=== PATIENT | female | born 1960 | race Caucasian/White ===

== ENCOUNTER 2019-12-23 09:53 | Inpatient (IN) | payer BC, SELFPAY ==
[~2019-12-23] VITALS: Ht 160 cm; Wt 62.3 kg
[2019-12-23 10:05] VITALS: Ht 160 cm; Wt 62.3 kg
--- NOTE | 2019-12-23 10:07 | NUR ---
MD SALOMON AT BEDSIDE
--- NOTE | 2019-12-23 10:09 | NUR ---
PT PRESENTS TO ED 1 FROM [facility]. PT WAS AT [facility] FOR WOUND CARE MANAGEMENT OF NEW OSTOMY BAG. PT PRESENTS HERE WITH INCREASED AGITATION, FEVER, TACHYCARDIA, AND LOW BP. UPON ARRIVAL PT IS GCS15. PT RESPONDS PURPOSEFULY TO QUESTIONS HOWVERR UNABLE TO ANSWER QUESTIONS FOR ORIENTATION.PT HOT TO THE TOUCH. PT GRUNTING FROM PAIN. PT O2 SAT LOW ON ROOM AIR AND PLACED ON 6L NC WITH IMPROVEMENT. PT STATES SHE HAS NEW ONSET HERPES ON HER COCCYX. PER EMS SHE IS HYPOTENSIVE AT BASELINE DUE TO "ALL THE PAIN MEDS SHE TAKES". PT HAS OSTOMY NOTED TO RLQ WITH CLEAN AND NORMAL DRAINAGE AND BAG IN PLACE. POPPED PUSTULES NOTED TO PT BUTTOCKS AREA. PT CONNECTED TO FULL CM AND PULSE OX MONITORS. LAB AT BEDSIDE FOR BLOOD DRAW.
--- NOTE | 2019-12-23 10:49 | NUR ---
LEVO INFUSING AT 2MCG/MIN IN R UPPER PICC LINE WITH NS BOLUS WELL PER MD SALOMON
--- NOTE | 2019-12-23 10:53 | NUR ---
COOLING MEASURES IN PLACE AT THIS TIME XRAY AT BEDSIDE
[2019-12-23 10:56] LABS: PLATELET COUNT 225 x10^3mcL (130-400)
--- NOTE | 2019-12-23 10:58 | NUR ---
MD SALOMON STATES TITRATE LEVO TO BP WITH MAP OF 65. PT CURRENTLY HAS 2L BOLUS INFUSING AND X RAY AT BEDSIDE. WILL ADJUST LEVO ACCORDINGLY
--- NOTE | 2019-12-23 11:01 | NUR ---
LEVO TITRATED UP TO 04.MCG/JR
[2019-12-23 11:06] LABS: CALCIUM 9.3 mg/dL (8.5-10.1); CARBON DIOXIDE 20.5 mmol/L (21-32); CHLORIDE SERUM 104 mmol/L (98-107); GFR1 > 60 mL/min; GLUCOSE SERUM 101 mg/dL (74-106); POTASSIUM SERUM 3.4 mmol/L (3.5-5.1); SODIUM SERUM 138 mmol/L (136-145)
[2019-12-23 11:11] LABS: ALT/SGPT 51 U/L (14-59); AST/SGOT 43 U/L (15-37); TOTAL PROTEIN, SERUM 7.2 g/dL (6.4-8.2)
[2019-12-23 11:13] LABS: ALBUMIN 1.6 g/dL (3.4-5.0)
[2019-12-23 11:23] LABS: BASOPHIL % 0 % (0-2); RED CELL DISTRIBUTION WIDTH 17.8 % (11.5-14.5)
--- NOTE | 2019-12-23 11:24 | NUR ---
PT REQUESTING TO CONTACT HER MOTHER NIKHIL AT [phone]
--- NOTE | 2019-12-23 11:26 | NUR ---
PER PT MOTHER SHE HAS OSTOMY BAG DUE TO PERFORATED COLON APPROX [address] STEVE IN [place] OUT OF [place] IS HER PMD MOTHER STATES SHE HAS HAD MANY INFECTIONS AND COMPLICATIONS WITH OSTOMY SINCE IT HAPPENED AND THAT IS WHY SHE HAS BEEN IN [facility]
--- NOTE | 2019-12-23 11:30 | NUR ---
PT HAS DEHISCING ABDOMNIAL WOUND MID ABDOMEN MIDLINE ABOVE AND BELOW UMBILICUS. WITH YELLOW DRAINAGE NOTED 6 INCHES LONG BY 2 INCHES WIDE BY 4 INCHES DEEP WITH TUNNELING NOTED MD SALOMON AWARE
--- NOTE | 2019-12-23 11:31 | NUR ---
MD SALOMON DOES NOT WANT TO ADDRESS PT PAIN AT THIS TIME DUE TO CONCERNS FOR BLOOD PRESSURE EVEN THOUGH PT REQUESTING PAIN MEDS PT MOTHER NIKHIL STATES HER DAUGHTER DOES TYPICALLY HAVE VERY LOW BP HOWEVER COULD NOT GIVE ME EXACT NUMBERS
--- NOTE | 2019-12-23 12:00 | NUR ---
PT TOLERATED CT WELL PT LEVO INCREASED TO 6 MCG SEE VITALS
[2019-12-23 12:21] LABS: ALKALINE PHOSPHATASE 1035 U/L (46-116)
--- NOTE | 2019-12-23 12:30 | NUR ---
PT LEVO INCREASED TO MCG/MIN
--- NOTE | 2019-12-23 13:24 | NUR ---
LAC IV D/C DUE TO INFILTRATION RFA IV STARTED AT THIS TIME
--- NOTE | 2019-12-23 13:37 | NUR ---
PT STATES "OKAY TO GIVE ANY OF MY FAMILY MEMBERS MEDICAL INFORMATION" UPDATED PT SON ON CURRENT STATUS
[2019-12-23] MEDS ORDERED: NOVAPLUS L40 MG/0.4 SC (14:11)
[2019-12-23] MEDS ORDERED: METAMUCIL POWD575 G1 PO (14:11)
[2019-12-23] MEDS ORDERED: MILK OF MA400 MG/52 PO (14:12)
[2019-12-23] MEDS ORDERED: MORPHABOND ER15 MG PO (14:13)
[2019-12-23] MEDS ORDERED: MULTI-VITAMIN W1 TAB PO (14:13)
[2019-12-23] MEDS ORDERED: TYLENOL325 M1 PO (14:15)
[2019-12-23] MEDS ORDERED: TYLENOL WITH CO1 TA2 PO (14:17)
[2019-12-23] MEDS ORDERED: ZINC SULFATE220 M2 PO (14:26)
--- NOTE | 2019-12-23 14:26 | NUR ---
MED REC COMPLETED USING MED LIST FROM [facility].
--- NOTE | 2019-12-23 14:38 | NUR ---
PT TITRATED DOWN TO 6MCG/MIN OF LEVO
--- NOTE | 2019-12-23 14:44 | NUR ---
OSTOMY BAG LEAKING AT THIS TIME. OSTOMY BAG REPLACED. WOUNDS RECOVERED WITH STERILE DRESSINGS. ULTRASOUND AT BEDSIDE SURGEON AT BEDSIDE AT THIS TIME
--- NOTE | 2019-12-23 15:24 | NUR ---
7CC OF BLOOD DRAWN FROM PICC LINE FOR LABS. EASY BLOOD RETURN.
[2019-12-23 16:16] LABS: microscopic required? YES; urine erythrocyte 2+ (NEGATIVE)
[2019-12-23 16:37] LABS: T3 TOTAL 1.45 ng/mL
[2019-12-23 16:47] LABS: MAGNESIUM 1.5 mg/dL (1.8-2.4)
[2019-12-23 16:54] LABS: CHOLESTEROL/HDL RATIO 9.1
[2019-12-23 17:00] LABS: FREE T4 1.66 ng/dL (0.76-1.46); FREE THYROXINE INDEX 3.5 ug/dL (1.4-4.5); T4(THYROXINE) 9.1 ug/dL (4.7-13.3)
--- NOTE | 2019-12-23 17:29 | NUR ---
REPORT GIVEN TO ARIN DANGELO. ALL QUESTIONS AND CONCERNS ADDRESSED AT THIS TIME
[2019-12-23 17:45] VITALS: BP 65/41
[2019-12-23 18:00] VITALS: BP 135/79
[2019-12-23 18:11] VITALS: BP 65/41
[2019-12-23 18:15] VITALS: BP 125/74
--- NOTE | 2019-12-23 18:40 | NUR ---
AT 1745 - RECEIVED PATIENT FROM ER NURSE. SETTLED IN BED, ORIENTED TO SURROUNDINGS AND PLACED ON MONITORING. ADMITTED FROM [facility] WITH DX OF SEPTIC SHOCK AND CHOLECYSTITIS. PATIENT IS DROWSY, AWAKE AND APPEARS ORIETNED TO PERSON, PLACE, TIME AND SITUATION. ON LEVOPHED FOR BP SUPPORT. CURRENT RATE OF 6 MCG.PATIENT HAS SHEYLA PICC LINE - 2 PORTS. ALSO R WRIST PERIPHERAL IV. PT C/O BUTTOCK PAIN - HAS RED AREA WITH OPEN BLEBS/PUSTULES X 3 ON COCCYX/BUTTOCK AREA. ALSO OPEN, VERTICAL SURGICAL INCISON TO ABDOMEN WITH SMALLER OPEN INCISON IN RUQ. COLOSTOMY WITH LIGHT BROWN LIQUID IN BAG. AT 1800 - WOUNDS PHOTO DOCUMENTED. WET TO DRY DRESSING APPLIED TO ABDOMINAL WOUNDS AND BUTTOCK WOUND LEFT NEHA. MRSA NARES AND COVID-19 NASAL SWABS COLLECTED. AT 1830 - GIVEN IV SOLUCORTEF X 1 DOSE PER EMAR. COMMENCED ON IV ZOSYN. FIRST DOSE IN PROGRESS. LEVOPHED AT 6 MCG/MIN. BP 114/76 MAP 93
[2019-12-23 18:45] VITALS: BP 114/76
--- NOTE | 2019-12-23 19:37 | NUR ---
PATIENT RESTING QUIETLY. NO FURTHER C/O PAIN. BP STABLE. REMAINS ON LEVOPHED AT 6 MCG/MIN. CARE ENDORSED TO NIGHT NURSE.
[2019-12-23 21:50] LABS: IRON 9 ug/dL (50-170); TOTAL IRON BINDING CAPACITY 148 ug/dL (250-450)
--- NOTE | 2019-12-23 23:08 | NUR ---
Seen and examined by Dr. Monsalve with new orders. New orders noted and carried out. WIll continue to monitor.
--- NOTE | 2019-12-23 23:37 | NUR ---
PT WAS RECEIVED AWAKE, ALERT, ORIENTED X3, BREATH SOUNDS CLEAR, RESP EVEN AND UNLABORED. WITH ONGOING LEVOPHED DRIP, IVF INFUSING WELL, SEEN BY DR GRAY, NEW ORDERS NOTED. COLOSTOMY WITH CLEAR OUTPUT NOTED. MID ABDOMINAL INCISION WITH DRESSING DRY AND INTACT. AFEBRILE, NOT IN ANY FORM OF DISTRESS. PLAN OF CARE NOTED AND IMPLEMENTED, ALL NEEDS ATTENDED, WILL CONTINUE TO MONITOR.
[2019-12-24] VITALS (30 sets, daily range): BP systolic 81–142; BP diastolic 51–100
--- NOTE | 2019-12-24 02:54 | NUR ---
PTS HR WENT LOW AT A RATE OF 40'S, PT DENIES ANY CHEST PAIN, STAT EKG DONE AND CALLED MD FOR THE RESULT, NO NEW ORDERS. PT RESTING IN BED, BED BATH GIVEN, ALL NEEDS ATTENDED, WILL CONTINUE TO MONITOR.
[2019-12-24 06:35] LABS: CALCIUM 8.2 mg/dL (8.5-10.1); CARBON DIOXIDE 22.3 mmol/L (21-32); CHLORIDE SERUM 107 mmol/L (98-107); CREATININE SERUM 0.8 mg/dL (0.6-1.0); GFR1 > 60 mL/min; GLUCOSE SERUM 132 mg/dL (74-106); POTASSIUM SERUM 3.9 mmol/L (3.5-5.1); SODIUM SERUM 142 mmol/L (136-145)
[2019-12-24 06:45] LABS: BASOPHIL % 0.1 % (0-2); PLATELET COUNT 268 x10^3mcL (130-400); RED CELL DISTRIBUTION WIDTH 18.1 % (11.5-14.5)
--- NOTE | 2019-12-24 06:45 | NUR ---
ASLEEP BUT AROUSABLE TO VERBAL STIMULI, STILL ON LEVOPHED DRIP AT 3MCG/MIN, NO ACUTE DISTRESS NOTED, WILL CONTINUE TO MONITOR.
--- NOTE | 2019-12-24 12:10 | NUR ---
DR LEE AND DR PAINTING PRESENT AT BEDSIDE TO DISCUSS PT POC. UPDATED ON PTS CURRENT STATUS. QUESTIONS ANSWERED. PER DR PAINTING, CONTINUE TO MONITOR PT, NO SURGERY AT THIS TIME. WILL REEVALUATE TOMORROW.
--- NOTE | 2019-12-24 12:17 | NUR ---
RC'D VERBAL ORDER FROM DR LEE TO CANCEL BLOOD TRANSFUSION AT THIS TIME. DR LEE TO ORDER ALBUMIN AND START PT ON MIDODRINE FOR BP SUPPORT. ORDERS TO BE CARRIED OUT AT THIS TIME.
[2019-12-24 13:23] LABS: ALBUMIN 1.4 g/dL (3.4-5.0); BILIRUBIN DIRECT 2.1 mg/dL (0.0-0.2); BILIRUBIN TOTAL 2.3 mg/dL (0.20-1.00); TOTAL PROTEIN, SERUM 6.5 g/dL (6.4-8.2)
--- NOTE | 2019-12-24 15:34 | NUR ---
NOTIFIED PRIMARY RN THAT RC'D CRITICAL LAB RESULT, PT RESULTS WITH YEAST IN BLOOD CULTURE. PRIMARY RN TELATO TO CALL AND NOTIFY MD AT THIS TIME
--- NOTE | 2019-12-24 21:00 | NUR ---
Spoke to Dr. Mera regarding pt had a fall. MD stated to continue to monitor at this time. Will continue to monitor.
[2019-12-25] VITALS: BP 92/56
[2019-12-25 04:00] VITALS: BP 105/60
[2019-12-25 06:19] LABS: CALCIUM 8.4 mg/dL (8.5-10.1); CARBON DIOXIDE 26.9 mmol/L (21-32); CHLORIDE SERUM 103 mmol/L (98-107); GFR1 > 60 mL/min; GLUCOSE SERUM 84 mg/dL (74-106); MAGNESIUM 1.6 mg/dL (1.8-2.4); PHOSPHOROUS 4.4 mg/dL (2.5-4.9); POTASSIUM SERUM 3.8 mmol/L (3.5-5.1); SODIUM SERUM 139 mmol/L (136-145)
[2019-12-25 06:26] LABS: BASOPHIL % 0.1 % (0-2); PLATELET COUNT 339 x10^3mcL (130-400)
[2019-12-25 06:27] LABS: RED CELL DISTRIBUTION WIDTH 18.2 % (11.5-14.5)
[2019-12-25 07:30] VITALS: BP 83/43
--- NOTE | 2019-12-25 07:30 | NUR ---
REPORTED TO DR. DUFF PT MAG 1.6. NO NEW ORDERS AT THIS TIME.
--- NOTE | 2019-12-25 07:30 | NUR ---
PT IS AAOX3/4 WITH EPISODES OF CONFUSION. PT ON 02 N/C AT 4LPM TITRATED DOWN TO 2LPM. O2 SAT AT 94%. LUNG SOUNDS CTA, NO COUGH OR SOB. TELE [address] READING NSR. ABDOMEN SOFT, TENDER, NONDISTENDED. PT HAS ILLEOSTOMY PLACED TO R UPPER QUAD DRAINING DARK BROWN/GREEN SEMI LIQUID STOOL. SITE WNL. STOMA PINK AND WNL. PT HAS ABDOMINAL SURIGICAL INCISION CLOSED WITH DRAINAGE COVERED WITH GAUZE AND ISLAND DRESSING. SITE IS RED WITH PUS LIKE DRAINAGE. RUE PICC LINE IN PLACE WITH 2 LUMENS, FLUSHED AND PATENT. SITE WNL. LEVOPHED RUNNING TO RUE PICC AT 0.499 MCG/MIN. B/P 83/43 (56). DENIES PAIN. FALL PROTOCOL IN PLACE, BED IN LOWEST POSITION. WILL CONTINUE TO MONITOR.
--- NOTE | 2019-12-25 07:30 | NUR ---
WOUND CX TAKEN FROM MIDABDOMINAL SURGICAL INCISION. TAKEN TO LAB.
--- NOTE | 2019-12-25 09:25 | NUR ---
NORCO PO PRN GIVEN FOR GENERALIZED PAIN. EXTRA FLUIDS GIVEN AND ENCOURGAGED.
--- NOTE | 2019-12-25 09:30 | NUR ---
SCHEDULED MEDS GIVEN AND TOLERATED WELL. HEPARIN SQ GIVEN IN R LOWER QUAD. 02 N/C AT 2LPM INTACT. SITE WNL. LEOVPHED IV RUNNING AT 0.488MCG/MIN PT DENIES PAIN. WILL CONTINUE TO MONITOR.
--- NOTE | 2019-12-25 13:35 | NUR ---
JOEY SINGH INITIATED. PT DENIES PAIN. CALL LIGHT WITHIN REACH.
--- NOTE | 2019-12-25 14:41 | NUR ---
PT EDUCATED THAT [facility] HAS NOT SENT ANY BELONIGINGS OR CELL PHONE TO FINANCIAL BUSINESS ANALYST/LOBBY. PT VERBALIZED UNDERSTANDING.
[2019-12-25 16:00] VITALS: BP 116/63
--- NOTE | 2019-12-25 16:12 | NUR ---
WOUND CX SAMPLE TAKEN FROM SACRAL/BUTTOCK WOUND AND TAKEN TO LAB AT THIS TIME.
--- NOTE | 2019-12-25 16:23 | NUR ---
MAG OX PO X1 GIVEN FOR MAG= 1.6. SCHEDULED TORADOL IVP GIVEN FOR ABDOMINAL PAIN 11/14. PT REPOSITIONED FOR COMFORT. CALL LIGHT WITHIN REACH.
--- NOTE | 2019-12-25 18:36 | NUR ---
PAGED DR. JAMIL. PT HAS SECOND ORDER FOR MAG OX AND TORADOL BOTH X1, THEY APPEAR TO BE DUPLICATE ORDERS. PT IS SLEEPING AT THIS TIME. NO DISTRESS NOTED. IV ZOSYN GIVEN AT THIS TIME. WILL ENDORSE ALL CARE TO NOC RN.
--- NOTE | 2019-12-25 18:40 | NUR ---
MAG OX PO AND TORADOL IVP X1 D/C DUE TO DUPLICATE ORDER, ORDER RECEIVED FROM DR. JAMIL.
--- NOTE | 2019-12-25 19:14 | NUR ---
ENDORSED PT TO ANTOLIN MARSHALL.
--- NOTE | 2019-12-25 20:15 | NUR ---
PT WAS RECEIVED AWAKE, ALERT, ORIENTED X4, ANXIOUS AND FORGETFUL AT TIMES. BREATH SOUNDS CLEAR, RESP EVEN AND UNLABORED. DENIES ANY PAIN, SR ON THE MONITOR. WITH IVF INFUSING WELL, AFEBRILE, NO ACUTE DISTRESS NOTED. PLAN OF CARE NOTED AND IMPLEMENTED, ALL NEEDS ATTENDED, WILL CONTINUE TO MONITOR.
--- NOTE | 2019-12-26 | NUR ---
RESTING IN BED, VSS, IVF INFUSING WELL. DUE MEDS GIVEN, WILL CONTINUE TO MONITOR.
[2019-12-26 02:00] VITALS: BP 103/58
--- NOTE | 2019-12-26 02:04 | NUR ---
PT IS ORDERED TO TRANSFER TO TELE FLOOR, REPORT GIVEN TO ANTOLIN IGLESIAS. TRANSFER PT TO TELE VIA BED IN STABLE CONDITION.
--- NOTE | 2019-12-26 02:24 | NUR ---
RECEIVED PATIENT FROM ICU COMPUTER INFORMATION SYSTEMS INSTRUCTOR. PATIENT ALERT AND ORIENTED X4. DENIES DELGADO/DIZZINESS. UNLABORED BREATHING ON RA WITH NO RESP DISTRESS. TELE 15 SR ON MONITOR, DENIES CHEST PAIN/PRESSURE. SHEYLA PICC LINE, FLUSHED WELL. PATIENT HAS ILEOTOMY RIGHT SIDE. ABD DRESSING TO MID ABD, CDI. PATIENT HAS OPEN WOUND TO COCCYX NEW OPTIFOAM APPLIED. PATIENT HAS LEFT FOOT DROP. PATIENT IN NO ACUTE DISTRESS. CALL BUTTON WITHIN REACH. SAFETY PRECAUTIONS IN PLACE. WILL MONITOR.
--- NOTE | 2019-12-26 06:21 | NUR ---
PATIENT SLEPT ON AND OFF THROUGHOUT THE NIGHT WITH NO ACUTE DISTRESS. PATIENT UNLABORED BREATHING ON RA. PICC LINE ORDER TO DC, CLARIFIED WITH DR DUFF. PER DR RAUSCH WILL CLARIFY WITH SENIOR RESIDENT. PATIENT HAS IV RW PATENT, FLUSHED WELL. PATIENT TURNED AND REPOSITIONED. PT USES BEDPAN. ILEOSTOMY BAG EMPTIED WATERY STOOL. ALL NEEDS MET. MEDICATED PER EMAR. CALL BUTTON WITHIN REACH. SAFETY PRECAUTIONS IN PLACE. WILL MONITOR.
[2019-12-26 06:34] VITALS: BP 106/64
--- NOTE | 2019-12-26 07:15 | NUR ---
SEEN AOX4, NOT IN DISTRESS, TELE 15, NSR, PALPABLE PULSES, NO EDEMA, CTA ON BLF, +BS, VOIDS WITH NO DYSURIA, GENERALIZED WEAKNESS, L FOOT DROP, ILEOSTOMY IN PLACE DRAINING WELL , ABD INCISION WITH CDI, OPEN WOUND COCCYX WITH OPTIFOAM IN PLACE, SHEYLA PICC LINE INTACT AND PATENT, IV INTACT AND PATENT RW. NO REDNESS OR SWELLING, CALL LIGHT WITHIN REACH, BED AT LOWEST POSITION, SIDE RAILS UP.
--- NOTE | 2019-12-26 07:37 | NUR ---
PATIENT IN NO DISTRESS. ENDORSED CARE TO DAY SHIFT RN.
--- NOTE | 2019-12-26 09:06 | NUR ---
MEDICATIONS GIVEN PER EMAR
[2019-12-26 10:06] VITALS: BP 119/70
--- NOTE | 2019-12-26 11:21 | NUR ---
ZOSYN IVPB INFUSING WELL AT 100CC/HR. NO REDNESS OR SWELLING.
--- NOTE | 2019-12-26 12:18 | NUR ---
NORCO PO GIVEN FOR BACK PAIN 11/14
[2019-12-26 12:51] VITALS: BP 102/68
--- NOTE | 2019-12-26 13:09 | NUR ---
ILEOSTOMY LEAKING, ILEOSTOMY BAG CHANGED. ABD INCISION SITE DRESSING CHANGED DUE TO ILEOSTOMY LEAKAGE. ASEPTIC TECHNIQUE MAINTAINED. PHOTOGRAPHIC WOUND EVIDENCE TAKEN.
--- NOTE | 2019-12-26 13:31 | NUR ---
MEDICATIONS GIVEN PER EMAR.
--- NOTE | 2019-12-26 14:18 | NUR ---
PAGED DR JAMIL REGARDING PICC LINE AND WOUND CULTURE COCCYX MRSA RESULT
--- NOTE | 2019-12-26 14:20 | NUR ---
DR JAMIL CALLED BACK. MADE AWARE OF MRSA RESULTS AND PICC LINE ORDERS.
[2019-12-26 14:56] LABS: BASOPHIL % 0.4 % (0-2); PLATELET COUNT 350 x10^3mcL (130-400)
[2019-12-26 14:57] LABS: RED CELL DISTRIBUTION WIDTH 18.5 % (11.5-14.5)
--- NOTE | 2019-12-26 15:00 | NUR ---
SPOKE WITH DIETITIAN ERNESTO, PER ERNESTO, PATIENT WILL NEED GLUCERNA TWICE A DAY AND HE WILL ASSESS IF SHE NEEDS MORE.
[2019-12-26 15:21] LABS: BILIRUBIN TOTAL 2.7 mg/dL (0.20-1.00); CALCIUM 8.4 mg/dL (8.5-10.1); CREATININE SERUM 1.1 mg/dL (0.6-1.0); POTASSIUM SERUM 3.1 mmol/L (3.5-5.1); TOTAL PROTEIN, SERUM 7.2 g/dL (6.4-8.2)
[2019-12-26 15:33] LABS: ALBUMIN 1.8 g/dL (3.4-5.0)
[2019-12-26 21:24] VITALS: BP 85/54
--- NOTE | 2019-12-27 02:01 | NUR ---
PT STABLE IN BED. PT AAOX3 AND AMBULATES A BIT UNSTEADILY WITH LEFT FOOT DROP. PT ASKED TO CALL FOR ASSISTANCE. ILEOSTOMY TO ABDOMEN AND SURGICAL WOUNDS. DRESSINGS DONE. ILEOSTOMY BAG CHANGED. DR. CARDENAS WANTS TO KEEP PATIENT'S PICC LINE INTACT AND WILL DECIDE LATER IF IT SHOULD BE D/C. NO DISTRESS NOTED. SOME COGNITIVE MENTATION NOTED.
[2019-12-27 05:46] VITALS: BP 104/63
--- NOTE | 2019-12-27 06:53 | NUR ---
PT STABLE THROUGHOUT SHIFT. REMOVED AND REPLACED OSTOMY BAG AND DID SURGICAL DRESSING X2 THIS SHIFT. MODERATE DRAINAGE FROM OSTOMY. WOUND TO COCCYX WITH YELLOW SLOUGH, REDNESS AND SPONGY. REQUIRES ATTENTION. PT LEFT CLEAN AND DRY WITH ALL DRESSINGS AND ISTOMY BAG CHANGED. DRAINAGE FROM OSTOMY BAG DARK GREEN.
[2019-12-27 07:02] LABS: BASOPHIL % 0.5 % (0-2); PLATELET COUNT 382 x10^3mcL (130-400)
[2019-12-27 07:11] LABS: RED CELL DISTRIBUTION WIDTH 18.6 % (11.5-14.5)
--- NOTE | 2019-12-27 07:25 | NUR ---
RECEIVED PT SITTING UP IN ROOM EATING BREAKFAST, ALERT, VERBALLY RESPONSIVE. IN NO ACUTE RESPIRATORY DISTRESS. DENIES PAIN OR DISCOMFORT AT THIS TIME. PICC LINE TO SHEYLA INTACT AND PATENT. SECONDARY IV LINE TO RIGHT WRIST. ON TELE 15. BED IN LOWEST POSITION. CALL LIGHT WITHIN REACH. WILL CONTINUE TO MONITOR.
[2019-12-27 07:54] LABS: CALCIUM 8.4 mg/dL (8.5-10.1); CARBON DIOXIDE 26.2 mmol/L (21-32); CHLORIDE SERUM 95 mmol/L (98-107); CREATININE SERUM 0.9 mg/dL (0.6-1.0); GFR1 > 60 mL/min; GLUCOSE SERUM 96 mg/dL (74-106); MAGNESIUM 1.8 mg/dL (1.8-2.4); PHOSPHOROUS 3.1 mg/dL (2.5-4.9); POTASSIUM SERUM 3.1 mmol/L (3.5-5.1); SODIUM SERUM 133 mmol/L (136-145)
[2019-12-27 09:00] VITALS: BP 100/70
--- NOTE | 2019-12-27 09:45 | NUR ---
ILEOSTOMY BAG LEAKING. CLEANED SITE AND CHANGED BAG. ABDOMINAL DRESSING CHANGED WITH DRY DRESSING ORDERED.
--- NOTE | 2019-12-27 11:30 | NUR ---
RESIDENTS AND ATTENDING MAKING ROUNDS. SPOKE WITH PT REGARDING PLAN OF CARE AND POSSIBLE DISCHARGE. ALL QUESTIONS AND CONCERNS ADDRESSED, NO QUESTION AT THIS TIME, PT VERBALIZED UNDERSTANDING.
--- NOTE | 2019-12-27 12:20 | NUR ---
PATIENT VERBALIZED BEING IN HIGH LEVEL OF ANXIETY AND WANTING TO GO HOME. PT CURRENTLY HAVE SHEYLA PICC LINE. MARY ANDERS SPOKE WITH PATIENT AND STATED THAT SHE WILL BE D/C TODAY. PATIENT AGREES TO GO HOME BUT INSIST ON WAITING. NOTED PATIENT REMOVING GOWN AND TELE MONITOR. GATHERED ALL HER BELONGINGS IN PLASTIC BAG AND ATTEMPTED TO WALK OUT WITH THE WALKER. EXPLAINED RISKS AND BENEFITS TO PATIENT, STILL STRONGLY REFUSED TO LEAVE. CALLED JENNIFER ZAVALA (SON) AND LEFT A MESSAGE VIA VOICEMAIL, NO ANSWER AT THIS TIME. SPOKE WITH MOM EDDY RODRIGUEZ AND MADE AWARE OF SITUATION. PATIENT EXPRESSED AGITATION AND ANGER BY SLAMMING WALKER TO THE GROUND. ASSISTED PT TO ROOM. EXPLAINED DISCHARGE PLAN.
--- NOTE | 2019-12-27 13:35 | NUR ---
PATIENT CONTINUES TO INSIST ON LEAVING AMA REGARDLESS ON MD EXPLAINING DISCHARGE PROCEDURE. PATIENT SIGNED AMA AND VERBALIZED SHE WILL LEAVE REGARDLESS. D/C IV SITE ON RIGHT WRIST, CATHETER INTACT, COVERED WITH DRY DRESSING AND TAPE. REMOVED PICC LINE FROM SHEYLA, NO BLEEDING AT THE SITE NOTED.
--- NOTE | 2019-12-27 14:00 | NUR ---
FLORINDA MOORE CONTACTED FOR RECOMMENDED DISCHARGE INSTRUCTIONS. PER , PATIENT WILL NEED TO SIGN AMA IF INSIST ON LEAVING.
--- NOTE | 2019-12-27 14:31 | NUR ---
PATIENT WANTS TO LEAVE THE HOSPITAL AND SIGNED THE AMA FORM. DR JAMIL AWARE AND SHE CAME TO SPEAK WITH THE PATIENT. PER PATIENT'S MOTHER PATIENT CAN'T LEAVE AMA BECAUSE HER SON HAS TO APPROVE HER TO GO HOME. LEFT MESSAGE WITH SON AND NO CALL BACK RECEIVED. SPOKE WITH COMMUNICATIONS LEAD JAMES AND HE SAID THAT PATIENT CAN LEAVE AMA LONG SHE IS ALERT/ORIENTED X4. INFORMED VISUAL SUPERVISOR CHUCK AND THERE IS NO PAPERWORK TO PROOF THAT PATIENT CAN'T MAKE HER OWN DECISION. ASSESSED PATIENT AND SHE IS ALERT, ORIENTED X4, ANSWERS APPROPRATELY QUESTIONS AND SHE STATED THAT SHE HAS A FRIEND WHO IS COMING TO PICK HER UP BUT NOW THE FRIEND DOES NOT ANSWER THE PHONE. CALLED RISK CONTROL FIELD REPRESENTATIVE AND I WAS INFORMED THAT A PERSON IS WAITING FOR THE PATIENT IN [facility]. PATIENT LEFT THE FLOOR IN STABLE CONDITIONS, VIA WHEELCHAIR ACCOMPANIED BY ANGELIKA-ANTOLIN.
--- NOTE | 2019-12-27 15:00 | NUR ---
ASSISTED PATIENT TO LOBBY VIA W/C. DENIES PAIN OR DISCOMFORT. DENIES SOB, NO ACUTE RESPIRATORY DISTRESS. ABLE TO MAKE NEEDS KNOWN. ILEOSTOMY BAG AND ABDOMINAL BANDAGES CLEAN. PT CONTACTED ELY FISHER (FRIEND) TO PICK HER UP. EDDY (MOM) MADE AWARE, VERBALIZED UNDERSTANDING. PT WAS PICKED UP VIA PRIVATE CAR, IN GOOD CONDITION. ALL BELONGINGS WITH PATIENT.
== END 2019-12-27 14:32 | disposition left against medical advice (07) | DRG 871 ==
LOC: ED 09:53 → IC 14:36 → DU 12-26 02:11
PROVIDERS: Emergency Medicine; Family Medicine; Surgery; ADMIT Internal Medicine; ATTEND Internal Medicine
DX: B37.7 Candidal sepsis (principal); R65.21 Severe sepsis with septic shock; G93.41 Metabolic encephalopathy; E43 Unspecified severe protein-calorie malnutrition; J96.00 Acute respiratory failure, unspecified whether with hypoxia or hypercapnia; E87.2 Acidosis; Z20.828 Contact with and (suspected) exposure to other viral communicable diseases; E11.9 Type 2 diabetes mellitus without complications; D50.9 Iron deficiency anemia, unspecified; E78.1 Pure hyperglyceridemia; E87.6 Hypokalemia; G89.29 Other chronic pain; F41.9 Anxiety disorder, unspecified; Z53.29 Procedure and treatment not carried out because of patient's decision for other reasons; Z88.0 Allergy status to penicillin; Z68.21 Body mass index [BMI] 21.0-21.9, adult; Z79.899 Other long term (current) drug therapy
CPT/HCPCS: 36600; 83880; 84439; 87106; 97116-GP; 97530-GP; C9113; G0378; J0133; J1450; J1630; J1644; J1720; J1885; J2248; J2354; J2543; J2765; J3010; J3370; J3490; J7030; J7040; J7060; P9047; Q0092; Q0163; Q9967; U0003-CS